=== PATIENT | female | born 1935 | race Caucasian/White ===

== ENCOUNTER 2019-11-04 16:00 | Inpatient (IN) | payer MEDICARE, BC ==
[~2019-11-04] VITALS: Ht 149.9 cm; Wt 36.3 kg
[2019-11-04] MEDS ORDERED: ONDANSETRON 4 MG TAB.RAPDIS ONE (17:17)
[2019-11-04 17:24] LABS: BASOPHILS % (AUTO) 0.4 % (0.0-2.0); EOSINOPHILS % (AUTO) 0.4 % (0.0-6.0); HEMATOCRIT 45 % (33-45); HEMOGLOBIN 14.6 g/dL (11.5-14.8); LYMPHOCYTES # (AUTO) 0.6 /CMM (0.8-4.8); LYMPHOCYTES % (AUTO) 4.7 % (20.0-44.0); MEAN CORPUSCULAR HGB CONC 32 g/dl (31.0-36.0); MEAN CORPUSCULAR VOLUME 91 fL (82-100); MONOCYTES # (AUTO) 0.6 /CMM (0.1-1.30); MONOCYTES % (AUTO) 4.7 % (2.0-12.0); NEUTROPHILS # (AUTO) 10.6 /CMM (1.8-8.9); NEUTROPHILS % (AUTO) 89.8 % (43.0-81.0); PLATELET COUNT (AUTO) 230 /CMM (150-450); RED BLOOD CELL COUNT(AUTO) 4.96 MIL/uL (4.0-5.2); WHITE BLOOD COUNT (AUTO) 11.8 K/uL (4.3-11.0)
[2019-11-04] MEDS ORDERED: ONDANSETRON 4 MG TAB.RAPDIS PO ONE (17:30)
[2019-11-04 17:47] LABS: CALCIUM, SERUM 10.2 mg/dL (8.5-10.1); CARBON DIOXIDE 30 mmol/L (21-32); CHLORIDE 103 mmol/L (98-107); CREATININE 0.8 mg/dL (0.6-1.3); GLUCOSE 121 mg/dL (74-106); SODIUM SERUM 142 mmol/L (136-145); UREA NITROGEN, BLOOD 21 mg/dL (7-18)
[2019-11-04 17:53] LABS: ALANINE AMINOTRANSFERASE 34 U/L (12-78); ALBUMIN 3.6 g/dL (3.4-5.0); ALKALINE PHOSPHATASE 50 U/L (46-116); ASPARTATE AMINOTRANSFERASE 29 U/L (15-37); BILIRUBIN,DIRECT 0.2 mg/dL (0.0-0.2); TOTAL PROTEIN, SERUM 7.3 g/dL (6.4-8.2)
[2019-11-04] MEDS ORDERED: IV NS 0.9% 500 ML BAG IV ONE (18:00)
[2019-11-04] MEDS ORDERED: FAMO-131 PO (18:13)
[2019-11-04] MEDS ORDERED: ATOR10TA PO (18:13)
[2019-11-04] MEDS ORDERED: MULT-447 PO (18:13)
[2019-11-04] MEDS ORDERED: MAGNESIUM HYDROXIDE 30 ML UDC PO PRN (18:30)
[2019-11-04] MEDS ORDERED: ACETAMINOPHEN 325 MG TABLET PO PRN (18:30)
[2019-11-04] MEDS ORDERED: MAG HYDROX/AL HYDROX/SIMETH 30 ML UDC PO PRN (18:30)
[2019-11-04] MEDS ORDERED: Z GUARD REMEDY 2 OZ OINT TP PRN (18:30)
[2019-11-04] MEDS ORDERED: ONDANSETRON HCL/PF 4 MG/2 ML VIAL IVP PRN (18:30)
[2019-11-04] MEDS ORDERED: MORPHINE SULFATE INJ 2 MG/ML DISP.SYRIN IV PRN (18:30)
--- NOTE | 2019-11-04 18:30 | NUR ---
Patient awake alert non distress noted x 1 BM medication given
[2019-11-04] MEDS ORDERED: ONDANSETRON HCL/PF 4 MG/2 ML VIAL IV PRN (19:00)
--- NOTE | 2019-11-04 19:39 | NUR ---
REPORT CALLED TO RN IMCUCATARINO TANNER. WILL TRANSPORT PT VIA ACLS PROTOCOL.
--- NOTE | 2019-11-04 20:06 | NUR ---
RN ADMITTING NOTES Pt ARRIVED TO THE FLOOR VIA GURNEY. Pt WAS ABLE TO AMBULATE TO THE ROOM BED WITH STEADY GAIT & STAND BY ASSIST. NO S/S OF ACUTE DISTRESS OR SOB NOTED. Pt IS A/OX4, VERBAL, ABLE TO MAKE NEEDS KNOWN. SISTER AT BEDSIDE VISITING. IV ACCESS ON RAC #20G, SL. SAFETY MEASURES IN PLACE. BED LOW, LOCKED, HOB ELEVATED, SIDE RAILS UP, CALL LIGHT AND BEDSIDE TABLE WITHIN REACH. WILL CONTINUE TO MONITOR Pt's CONDITION AND SAFETY THROUGHOUT THE NIGHT.
[2019-11-04 20:30] VITALS: BP 160/70
[2019-11-04] MEDS: IV D5W 1,000 ML IV SCH (20:41)
[2019-11-04 23:00] VITALS: BP 160/70
[2019-11-05] MEDS: IV D5W 1,000 ML IV SCH (04:37)
[2019-11-05 06:45] LABS: BASOPHILS % (AUTO) 0.4 % (0.0-2.0); EOSINOPHILS % (AUTO) 0.2 % (0.0-6.0); HEMATOCRIT 40 % (33-45); HEMOGLOBIN 13.4 g/dL (11.5-14.8); LYMPHOCYTES # (AUTO) 0.5 /CMM (0.8-4.8); LYMPHOCYTES % (AUTO) 6.1 % (20.0-44.0); MEAN CORPUSCULAR HGB CONC 33 g/dl (31.0-36.0); MEAN CORPUSCULAR VOLUME 90 fL (82-100); MONOCYTES # (AUTO) 1.2 /CMM (0.1-1.30); MONOCYTES % (AUTO) 14.6 % (2.0-12.0); NEUTROPHILS # (AUTO) 6.2 /CMM (1.8-8.9); NEUTROPHILS % (AUTO) 78.7 % (43.0-81.0); PLATELET COUNT (AUTO) 199 /CMM (150-450); RED BLOOD CELL COUNT(AUTO) 4.49 MIL/uL (4.0-5.2); WHITE BLOOD COUNT (AUTO) 7.9 K/uL (4.3-11.0)
--- NOTE | 2019-11-05 06:50 | NUR ---
RN CLOSING NOTES NO SIGNIFICANT CHANGES IN Pt's CONDITION. ALL NEEDS MET AND ATTENDED TO. Pt IS RESTING IN BED COMFORTABLY. NO S/S OF ACUTE DISTRESS OR SOB NOTED DURING THE NIGHT. SAFETY MEASURES IN PLACE. BED LOW, LOCKED, HOB ELEVATED, SIDE RAILS UP, CALL LIGHT AND BEDSIDE TABLE WITHIN REACH. WILL ENDORSE TO DAYSHIFT RN FOR Pt's DARWIN.
[2019-11-05 07:45] LABS: CALCIUM, SERUM 8.6 mg/dL (8.5-10.1); CREATININE 0.6 mg/dL (0.6-1.3); MAGNESIUM 1.6 mg/dL (1.8-2.4); PHOSPHORUS 5.4 mg/dL (2.5-4.9); POTASSIUM 3.5 mmol/L (3.5-5.1)
[2019-11-05 08:00] VITALS: BP 104/66
--- NOTE | 2019-11-05 08:05 | NUR ---
ms rn received on bed, awake,alert,oriented x4,not in any form of distress ,respirations even an dunlabored,no sob noted, lungs are clear,abdomen soft,positive bowel sounds,denies pain in am,all needs attended.
[2019-11-05] MEDS ORDERED: PANTOPRAZOLE 40 MG VIAL IV SCH (09:00)
--- NOTE | 2019-11-05 09:00 | NUR ---
ms baez breakfast served,due meds given tolerated well.
[2019-11-05] MEDS ORDERED: DIATR MEGLU/DIATRIZOATE SODIUM 120 ML BOTTLE (GASTROGRAPHIN) ONE (09:35)
--- NOTE | 2019-11-05 10:00 | NUR ---
ms rn npo for devonte hartley.
[2019-11-05] MEDS ORDERED: Magnesium 1GM/D5W 100ML PREMIX 100 ML IV SCH (10:31)
[2019-11-05] MEDS ORDERED: POTASSIUM CL. PREMIX PERIPHER. 50 ML IV SCH (10:38)
[2019-11-05] MEDS ORDERED: IV NS 0.9% 1,000 ML IV PRN (10:38)
[2019-11-05] MEDS: NITROGLYCERIN 30 GM TUBE TP SCH ×2 (11:00→21:00)
[2019-11-05] MEDS: Magnesium 1GM/D5W 100ML PREMIX 100 ML IV SCH ×2 (12:19→15:32)
--- NOTE | 2019-11-05 14:00 | NUR ---
rn gi series done patient will start eating soon.
--- NOTE | 2019-11-05 15:20 | NUR ---
ms rn on bed, procedure in done. all needs attended.
[2019-11-05 16:00] VITALS: BP 133/58
--- NOTE | 2019-11-05 18:11 | NUR ---
ms rn on bed, no disterss noted.
[2019-11-05] MEDS: Potassium Chloride 10 MEQ, LIDOCAINE HCL/PF 1% 1 ML in IV D5W 50 ML IV SCH ×3 (18:50→23:03)
--- NOTE | 2019-11-05 19:45 | NUR ---
MS RN NOTES RECEIVED OUT OF BED,PATIENT IN THE RESTROOM FOR BOWEL MOVEMENT IN THE RESTROOM.TO START WITH IV NS AT 125ML/HR RATE ORDERED.AMBULATE WITH STEADY GAIT,CALL LIGHT IN REACH,NEEDS ANTICIPATED.
[2019-11-05 20:00] VITALS: BP 124/61
--- NOTE | 2019-11-05 20:37 | NUR ---
Patient is alert and pleasant, she lives locally with her sister/family. She is ambulatory and independent with adl's. Has no DME or homehealth reported. Pcp is Dr. Surinder Johnson. Patient plan to return home, family will provide ride. Addendum: 11/05/19 at 2037 by JENNA WARD RN Amended: Links added.
--- NOTE | 2019-11-05 22:25 | NUR ---
Spoke with patient, she is alert and pleasant, she lives locally with her sister/family. She is ambulatory and independent with adl's. Has no DME or homehealth reported. Pcp is Dr. Davis. Patient plan to return home, family will provide ride. Addendum: 11/05/19 at 2225 by JENNA WRAD RN Amended: Links added.
[2019-11-06] MEDS: Potassium Chloride 10 MEQ, LIDOCAINE HCL/PF 1% 1 ML in IV D5W 50 ML IV SCH (00:15)
--- NOTE | 2019-11-06 06:27 | NUR ---
MS RN NOTES ON BED SLEEPING,IV FLUIDS INFUSING WELL ON LEFT AC VIA IV PUMP.RIGHT ELBOW LESS SWOLLEN,ELEVATED ON PILLOWS.DENIES ABDOMINAL PAIN.LABS TODAY.IN NO ACUTE DISTRESS.WILL ENDORSE TO DAY NURSE FOR DARWIN
[2019-11-06 07:21] LABS: BASOPHILS % (AUTO) 0.5 % (0.0-2.0); EOSINOPHILS % (AUTO) 2.3 % (0.0-6.0); HEMATOCRIT 36 % (33-45); HEMOGLOBIN 11.9 g/dL (11.5-14.8); LYMPHOCYTES # (AUTO) 0.7 /CMM (0.8-4.8); LYMPHOCYTES % (AUTO) 16.5 % (20.0-44.0); MEAN CORPUSCULAR HGB CONC 33 g/dl (31.0-36.0); MEAN CORPUSCULAR VOLUME 90 fL (82-100); MONOCYTES # (AUTO) 0.6 /CMM (0.1-1.30); MONOCYTES % (AUTO) 15.4 % (2.0-12.0); NEUTROPHILS # (AUTO) 2.7 /CMM (1.8-8.9); NEUTROPHILS % (AUTO) 65.3 % (43.0-81.0); PLATELET COUNT (AUTO) 170 /CMM (150-450); RED BLOOD CELL COUNT(AUTO) 4.01 MIL/uL (4.0-5.2); WHITE BLOOD COUNT (AUTO) 4.1 K/uL (4.3-11.0)
[2019-11-06 07:46] LABS: ALBUMIN 2.5 g/dL (3.4-5.0); BILIRUBIN,TOTAL 0.9 mg/dL (0.2-1.0); CALCIUM, SERUM 7.7 mg/dL (8.5-10.1); CREATININE 0.7 mg/dL (0.6-1.3); MAGNESIUM 2.5 mg/dL (1.8-2.4); PHOSPHORUS 2.4 mg/dL (2.5-4.9); POTASSIUM 4.1 mmol/L (3.5-5.1); TOTAL PROTEIN, SERUM 5.4 g/dL (6.4-8.2)
[2019-11-06 08:00] VITALS: BP 107/58
--- NOTE | 2019-11-06 08:00 | NUR ---
MS RN AM NOTES RECEIVED OUT OF BED,WITH IV NS AT 125ML/HR RATE INFUSING WELL.DENIES PAIN OR DISTRESS.VERY EAGER TO GO HOME.EATING BREAKFAST.AMBULATE WITH STEADY GAIT,CALL LIGHT WITHIN REACH.
--- NOTE | 2019-11-06 15:00 | NUR ---
DISCHARGED PT HOME WITH STABLE V/S. REMOVED PT'S IV H/L TO LT AC WITH NO BLEEDING NOTED.PT TOLERATED WELL. DISCHARGED PT HOME VIA PRIVATE CAR ACCOMPANIED BY HER SISTER AND FRIEND.
== END 2019-11-06 15:00 | disposition home or self-care (01) | DRG 388 ==
LOC: ER 16:08 → TELE 19:33 → MED 21:22
PROVIDERS: ADMIT Internal Medicine; ATTEND Internal Medicine
DX: K56.609 Unspecified intestinal obstruction, unspecified as to partial versus complete obstruction (principal); N17.0 Acute kidney failure with tubular necrosis; K56.7 Ileus, unspecified; K21.9 Gastro-esophageal reflux disease without esophagitis; E78.5 Hyperlipidemia, unspecified; R55 Syncope and collapse; Z92.3 Personal history of irradiation; Z92.21 Personal history of antineoplastic chemotherapy; Z85.42 Personal history of malignant neoplasm of other parts of uterus; Z88.2 Allergy status to sulfonamides; E83.42 Hypomagnesemia; D72.829 Elevated white blood cell count, unspecified; K76.89 Other specified diseases of liver
CPT/HCPCS: 36415; 70450-TC; 71045-TC; 74250-TC; 80048-TC; 80053-TC; 80076-TC; 83735-TC; 84100-TC; 84484-TC; 85025-TC; 85730-TC; 87081-TC; 93307-TC; 97116-TC; 97530-TC; C9113; G0378; J2405; J3475; J3480; J3490; J7030; J7060; J7070; Q0162; Q9963

== ENCOUNTER 2019-11-10 10:46 | Outpatient (CLI) | payer MEDICARE, BC ==
[~2019-11-10 10:46] MED LIST: ATOR10TA PO; FAMO-131 PO; MULT-447 PO
[2019-11-10 10:56] VITALS: BP 129/68
== END 2019-11-10 23:59 | disposition home or self-care (01) ==
LOC: MSC 10:46
PROVIDERS: ATTEND Internal Medicine
DX: K56.609 Unspecified intestinal obstruction, unspecified as to partial versus complete obstruction (principal); R55 Syncope and collapse; K21.9 Gastro-esophageal reflux disease without esophagitis; E78.5 Hyperlipidemia, unspecified; Z85.42 Personal history of malignant neoplasm of other parts of uterus